=== PATIENT | female | born 1980 | race Caucasian/White ===

== ENCOUNTER 2020-06-03 16:22 | Emergency (ER) | payer OTHER ==
[2020-06-03 16:30] VITALS: BP 125/81; PULSE 76; TEMP 98.6; BMI 23.1
[2020-06-03 17:59] LABS: URINE APPEARANCE CLEAR; URINE BILIRUBIN NEGATIVE (NEGATIVE); URINE COLOR YELLOW; URINE GLUCOSE (UA) NEGATIVE (NEGATIVE)
[2020-06-03 18:00] LABS: PH,URINE 5.5 (4.5-8); URINE KETONE NEGATIVE (NEGATIVE); URINE LEUK ESTERASE NEGATIVE (NEGATIVE); URINE NITRITE NEGATIVE (NEGATIVE); URINE PROTEIN NEGATIVE (NEGATIVE); URINE UROBILINOGEN 0.2 (0.2-1.0)
[2020-06-03 18:02] LABS: BILIRUBIN,TOTAL 0.8 mg/dl (0.2-1); CALCIUM 8.7 mg/dl (8.5-10); CREATININE 0.6 mg/dl (0.55-1.3); POTASSIUM 3.7 mmol/L (3.5-5.1); TOT PROT 7.3 g/dl (6.4-8.2)
[2020-06-03 18:04] LABS: EPITHELIAL CELLS RARE /hpf
[2020-06-03 18:55] LABS: HEMATOCRIT 37.7 % (32.4-45.2); HEMOGLOBIN 12.6 GM/dL (10.7-15.3); MCH 28.9 pg (25.7-33.7); MCHC 33.4 g/dl (32.0-36.0); MEAN CELL VOLUME 86.7 fl (80-96); MEAN PLT VOLUME 9.2 fl (7.5-11.1); PLATELET COUNT 201 K/MM3 (134-434); RBC 4.34 M/mm3 (3.60-5.2); RDW 13.9 % (11.6-15.6)
[2020-06-03] MEDS ORDERED: AZITHROMYCIN 500 MG TABLET PO ONE (19:06)
[2020-06-03] MEDS ORDERED: AZITHROMYCIN 250 MG TABLET ONE (19:16)
== END 2020-06-03 19:55 | disposition home or self-care (01) ==
LOC: FER 16:22
DX: R10.84 Generalized abdominal pain (principal)
CPT/HCPCS: 36415; 76830-TC; 80053; 81003; 81015; 84703; 85027; 87077; 87086; 87491; 87591; 99285-25